=== PATIENT | female | born 1975 | race Caucasian/White ===

== ENCOUNTER 2018-12-05 01:43 | Emergency (ER) | payer OTHER, MEDICAID ==
[~2018-12-05] VITALS: Ht 157.5 cm; Wt 104.8 kg
[2018-12-05 01:47] VITALS: BP 139/86
--- NOTE | 2018-12-05 02:00 | NUR ---
PT AMBULATED W/ STEADY GAIT TO BED 8, BOYFRIEND AT BEDSIDE.
[2018-12-05] MEDS ORDERED: KETOROLAC 30 MG/ML VIAL IM ONE (03:20)
[2018-12-05] MEDS ORDERED: HYDROcodone/APAP 5/325 MG 1 TAB TAB PO ONE (03:20)
--- NOTE | 2018-12-05 03:20 | NUR ---
43/F PRESENTS TO ED WITH FAMILY/FRIEND, S/P FALL X7 HRS AGO BY MISSING 2 STEPS WHILE WALKING DOWN FROM HER OUTSIDE PORCH. REPORTS FALLING FORWARD, DENIES HEAD TRAUMA/LOC. C/O PAIN ON L UPPER ARM, L KNEE, LOWER BACK, POSTERIOR NECK. MILD SCRATCH/ABRASION NOTED ON R KNEE, DENIES PAIN ON R KNEE, OTHERWISE NO BRUISING/SWELLING/ERYTHEMA ON ALL SITES. +1 NONPITTING EDEMA NOTED. DENIES CP, SOB, N/V. AOX4, SKIN NORMAL WARM AND DRY, RR EVEN AND UNLABORED. HX CHF, PACEMAKER/DEFIB, HLD, HTN, SLEEP APNEA, APPY, JOHAN, TUBAL LIGATION, L KNEE SURGERY
--- NOTE | 2018-12-05 04:00 | NUR ---
PT REFUSED TO COLLECT URINE SAMPLE FOR URINE , PT STATED THAT SHE HAS HAD TUBAL LIGATION AND IS ON HER PERIOD AT THIS TIME, DR BOWEN MADE AWARE, XR TECH MADE AWARE.
--- NOTE | 2018-12-05 05:10 | NUR ---
LEFT SHOULDER IMOBOLIZER SLING WAS PLACED ON PT
[2018-12-05 05:13] VITALS: BP 166/92
--- NOTE | 2018-12-05 05:13 | NUR ---
Patient discharged with v/s stable. Written and verbal after care instructions given and explained. Patient alert, oriented and verbalized understanding of instructions. Ambulatory with steady gait. All questions addressed prior to discharge. ID band removed. Patient advised to follow up with PMD. Rx of NAPROSYN, NORCO, FLEXERIL given. Patient educated on indication of medication including possible reaction and side effects. Opportunity to ask questions provided and answered.
== END 2018-12-05 05:13 | disposition home or self-care (01) ==
LOC: MED 01:43
DX: S43.402A Unspecified sprain of left shoulder joint, initial encounter (principal); S39.012A Strain of muscle, fascia and tendon of lower back, initial encounter; Z88.5 Allergy status to narcotic agent; Z90.49 Acquired absence of other specified parts of digestive tract; Z86.79 Personal history of other diseases of the circulatory system; W10.9XXA Fall (on) (from) unspecified stairs and steps, initial encounter; Y93.89 Activity, other specified; Y92.89 Other specified places as the place of occurrence of the external cause; Y99.8 Other external cause status
CPT/HCPCS: 72100; 73030; 96372; 99283; J1885; Q0092